=== PATIENT | male | born 1950 | race Caucasian/White ===

== ENCOUNTER 2017-01-21 11:16 | Inpatient (IN) | payer MEDICARE ==
[2017-01-21 11:58] LABS: BASOPHIL 0 % (0-2); EOSINOPHIL 0.6 % (0-7); HGB 8.5 g/dl (13.2-18.0); LYMPHOCYTE 15.8 % (15-48); MCH 27.2 pg (25.0-31.0); MCHC 29.3 g/dL (32.0-36.0); MCV 92.7 fL (78.0-100.0); MPV 10.1 fL (6.0-9.5); NEUTROPHIL 74.6 % (41-80); PLT 199 K/uL (150-400); RBC 3.13 M/uL (4.70-6.00); RDW 22.2 % (11.5-14.0); WBC 5.4 K/uL (4.0-10.5)
[2017-01-21 12:03] LABS: INR 1.17 (0.9-1.2); PROTHROMBIN TIME 14.5 SECONDS (11.7-14.0); PTT 31.2 SECONDS (23.2-31.4)
[2017-01-21 12:04] LABS: CREATININE 1.2 mg/dL (0.7-1.2); POTASSIUM 3.7 mmol/L (3.5-5.1)
[2017-01-21 12:07] LABS: TROPONIN T < 0.010 ng/mL
[2017-01-21 12:09] LABS: PRO-BNP 805 pg/mL (0-125)
[2017-01-21 13:21] LABS: BILIRUBIN NEGATIVE (NEGATIVE); BLOOD NEGATIVE Ery/uL (NEGATIVE); CLARITY CLEAR (CLEAR); COLOR YELLOW (YELLOW); GLUCOSE (U) NORMAL (NORMAL); KETONE (U) 1+ (SMALL) mg/dL (NEGATIVE); LEUKOCYTES NEGATIVE Leu/uL (NEGATIVE); NITRITE NEGATIVE (NEGATIVE); PROTEIN 1+ mg/dL (NEGATIVE); SPECIFIC GRAVITY >=1.030 (1.001-1.030); UROBILINOGEN 0.2 mg/dL (0.2-1.0); pH 5.5 (5.0-9.0)
[2017-01-21 13:29] LABS: BACTERIA TRACE; URINARY RBC RARE
[2017-01-21 13:30] LABS: AMORPHOUS URATES CRYSTALS MODERATE; CALCIUM OXALATE CRYSTALS MODERATE; GRANULAR CASTS TRACE
[2017-01-21 19:28] LABS: IRON 26 ug/dL (44-196); IRON % SATURATION 7 %SAT (20-50); TIBC (TOTAL IRON + UIBC) 394 U/L (228-428); UIBC 368 ug/dL (112-346)
[2017-01-21 19:31] LABS: RETICULOCYTE COUNT 6.5 % (1.0-2.0)
[2017-01-22 05:17] LABS: BASOPHIL 0.2 % (0-2); EOSINOPHIL 0.9 % (0-7); HCT 30.8 % (42.0-52.0); HGB 9.5 g/dl (13.2-18.0); LYMPHOCYTE 12.6 % (15-48); MCH 28.3 pg (25.0-31.0); MCHC 30.8 g/dL (32.0-36.0); MCV 91.7 fL (78.0-100.0); MONOCYTE 8.4 % (0-12); MPV 10.1 fL (6.0-9.5); NEUTROPHIL 77.9 % (41-80); PLT 184 K/uL (150-400); RBC 3.36 M/uL (4.70-6.00); RDW 21.9 % (11.5-14.0); WBC 5.7 K/uL (4.0-10.5)
[2017-01-22 05:29] LABS: CREATININE 1.1 mg/dL (0.7-1.2); MAGNESIUM 2.17 mg/dL (1.40-2.10); POTASSIUM 3.9 mmol/L (3.5-5.1)
[2017-01-23 05:48] LABS: HCT 33.8 % (42.0-52.0); HGB 10.5 g/dl (13.2-18.0); MCH 28.4 pg (25.0-31.0); MCHC 31.1 g/dL (32.0-36.0); MCV 91.4 fL (78.0-100.0); RBC 3.7 M/uL (4.70-6.00); RDW 21.5 % (11.5-14.0); WBC 5.2 K/uL (4.0-10.5)
[2017-01-23 06:14] LABS: CREATININE 1.1 mg/dL (0.7-1.2); MAGNESIUM 2.08 mg/dL (1.40-2.10); POTASSIUM 3.5 mmol/L (3.5-5.1)
--- NOTE | 2017-01-23 14:39 | NUR ---
DISCHARGE INSTRUCTIONS GIVEN;PT VERBALIZED UNDERSTANDING;D/C'D FROM FACILITY
[2017-01-23] MEDS ORDERED: SINGULAIR10 MG PO (14:57)
[2017-01-23] MEDS ORDERED: BACLOFEN 10MG T10 MG PO (14:57)
[2017-01-23] MEDS ORDERED: OMEPRAZOLE40 MG PO (14:58)
[2017-01-23] MEDS ORDERED: TOPROL XL 50 MG50 MG PO (14:58)
[2017-01-23] MEDS ORDERED: SINEMET 25-2501 EACH PO (14:58)
[2017-01-23] MEDS ORDERED: CLONIDINE 0.2M0.2 MG PO (14:59)
[2017-01-23] MEDS ORDERED: COZAAR 25MG TAB25 MG PO (14:59)
[2017-01-23] MEDS ORDERED: HYDRALAZINE 50M50 MG PO (14:59)
[2017-01-23] MEDS ORDERED: COMTAN 200MG T200 MG PO (15:00)
[2017-01-23] MEDS ORDERED: NEUPRO1 EAC1 PO (15:00)
[2017-01-23] MEDS ORDERED: ASCORBIC ACID500 MG PO (15:00)
[2017-01-23] MEDS ORDERED: FEOSOL325 MG PO (15:00)
[2017-01-23] MEDS ORDERED: CATAPRES0.1 MG PO (15:01)
[2017-01-23] MEDS ORDERED: LASIX40 MG PO (15:01)
[2017-01-23] MEDS ORDERED: KLOR-CON M2020 MEQ PO (15:02)
== END 2017-01-23 14:40 | disposition home or self-care (01) | DRG 292 ==
LOC: FER 11:16 → FTCU 13:50
PROVIDERS: Emergency Medicine; ADMIT Internal Medicine
PROC: 30233N1 Transfusion of Nonautologous Red Blood Cells into Peripheral Vein, Percutaneous Approach (ICD-10-PCS; principal; 2017-01-21)
PROC: 30233N1 Transfusion of Nonautologous Red Blood Cells into Peripheral Vein, Percutaneous Approach (ICD-10-PCS; 2017-01-22)
DX: I11.0 Hypertensive heart disease with heart failure (principal); D62 Acute posthemorrhagic anemia; G20 Parkinson's disease; I27.2 Other secondary pulmonary hypertension; I50.31 Acute diastolic (congestive) heart failure; I48.91 Unspecified atrial fibrillation; D50.9 Iron deficiency anemia, unspecified; R53.1 Weakness; Z82.49 Family history of ischemic heart disease and other diseases of the circulatory system; Z82.3 Family history of stroke; Z83.6 Family history of other diseases of the respiratory system; Z95.1 Presence of aortocoronary bypass graft; Z95.2 Presence of prosthetic heart valve; Z88.8 Allergy status to other drugs, medicaments and biological substances; Z95.0 Presence of cardiac pacemaker
CPT/HCPCS: 36415; 36430; 36600; 71010; 71020; 71275; 80048; 81001; 82607; 82747; 82803; 83540; 83550; 83735; 83880; 84484; 85025; 85044; 85610; 85730; 86850; 86900; 86901; 86922; 92526; 93005; 94640; 94664; 97162; 97530-GP; J2916; P9016; Q9967

== ENCOUNTER 2017-01-28 19:31 | Emergency (ER) | payer MEDICARE ==
[~2017-01-28 19:31] MED LIST: ASCORBIC ACID500 MG PO; BACLOFEN 10MG T10 MG PO; CATAPRES0.1 MG PO; CLONIDINE 0.2M0.2 MG PO; COMTAN 200MG T200 MG PO; COZAAR 25MG TAB25 MG PO; FEOSOL325 MG PO; HYDRALAZINE 50M50 MG PO; KLOR-CON M2020 MEQ PO; LASIX40 MG PO; NEUPRO1 EAC1 PO; OMEPRAZOLE40 MG PO; SINEMET 25-2501 EACH PO; SINGULAIR10 MG PO; TOPROL XL 50 MG50 MG PO
[2017-01-28 19:46] LABS: BASOPHIL 0.4 % (0-2); EOSINOPHIL 1.8 % (0-7); HCT 40.6 % (42.0-52.0); HGB 12.6 g/dl (13.2-18.0); LYMPHOCYTE 23.6 % (15-48); MCV 93.3 fL (78.0-100.0); MPV 10.3 fL (6.0-9.5); NEUTROPHIL 65.2 % (41-80); PLT 201 K/uL (150-400); RBC 4.35 M/uL (4.70-6.00); RDW 21.5 % (11.5-14.0); WBC 4.9 K/uL (4.0-10.5)
[2017-01-28 20:05] LABS: ALBUMIN 4.5 g/dL (3.4-4.8); BILIRUBIN - TOTAL 0.6 mg/dL (0.1-1.0); CREATININE 1.3 mg/dL (0.7-1.2); GLOBULIN (CALCULATION) 2.6 g/dL (2.2-4.2); POTASSIUM 4.3 mmol/L (3.5-5.1); TOTAL PROTEIN 7.1 g/dL (6.4-8.3)
[2017-01-28 20:08] LABS: CKMB 1.26 ng/mL (0.97-4.94); TROPONIN T < 0.010 ng/mL
[2017-01-28 20:21] LABS: PRO-BNP 536 pg/mL (0-125)
== END 2017-01-28 22:10 | disposition home or self-care (01) ==
LOC: FER 19:31
PROVIDERS: Emergency Medicine Emergency Medical Services
DX: I11.9 Hypertensive heart disease without heart failure (principal); I48.91 Unspecified atrial fibrillation; I50.9 Heart failure, unspecified; Z88.8 Allergy status to other drugs, medicaments and biological substances; Z95.1 Presence of aortocoronary bypass graft; Z95.0 Presence of cardiac pacemaker
CPT/HCPCS: 36415; 71010; 80053; 82550; 82553; 83880; 84484; 85025; 93005